=== PATIENT | male | born 1985 | race Caucasian/White ===

== ENCOUNTER 2022-11-29 12:58 | Outpatient (RCR) | payer MEDICAID, SELFPAY | END 2022-12-20 15:10 | disposition home or self-care (01) | PROVIDERS: Visit Provider Student in an Organized Health Care Education/Training Program | DX: S76.211A Strain of adductor muscle, fascia and tendon of right thigh, initial encounter (principal); Z51.89 Encounter for other specified aftercare | CPT/HCPCS: 97110; 97140; 97161 ==